=== PATIENT | female | born 1960 | race Caucasian/White ===

== ENCOUNTER 2016-04-10 22:12 | Emergency (ER) | payer SELFPAY ==
[~2016-04-10] VITALS: Ht 165.1 cm; Wt 91.4 kg
[~2016-04-10 22:12] MED LIST: ALBU0.086 INH; ALBU6.7H INH; MEDR4PAK3 PO; NEBUKIT4; ZITH250T PO
[2016-04-10 22:17] VITALS: BP 126/87; PULSE 92; RESP 18; TEMP 97.5; O2SAT 99
--- NOTE | 2016-04-10 23:46 | PD ---
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 She has similar pain that she had in 2012 when she had a plantar fasciitis. She also has pain on the distal right second metatarsal. This pain is gotten worse in the last 6 months. She comes to emergency department because she says she ran out of insurance. PFSH Past Medical History Bipolar Disorder: Yes Anxiety: Yes Depression: Yes Diabetes: No Diminished Hearing: No Gastrointestinal Disorders: Yes (CHRONIC DIARRHEA Started approx 2008 , does not keep her from working) Genitourinary: Yes (BLADDER SUSPENSION) Medical other: Yes (PLANTOR FASCITIS) Tetanus Vaccination: > 5 Years Influenza Vaccination: No ?: Not Menopausal: Yes : 4 Para: 2 Miscarriage: 1 : 1 Tubal Ligation: Yes Past Surgical History Cholecystectomy: Yes Genitourinary Surgery: Yes (BLADDER LIFT) Tonsillectomy: Yes Social History Alcohol Use: No Tobacco Use: Yes (1 ppd) Substance Use: No Allergies-Medications (Allergen,Severity, Reaction): Coded Allergies: No Known Allergies (Verified , 04/10/16) Reported Meds & Prescriptions Reported Meds & Active Scripts Active Ibuprofen 600 Mg Tab 600 Mg PO TID Review of Systems Except as stated in HPI: all other systems reviewed are Neg Physical Exam Narrative GENERAL: The patient is alert, oriented 3 and slight apparent distress with her bilateral foot pain. Her vital signs are normal. SKIN: Warm and dry. HEAD: Atraumatic. Normocephalic. EYES: Pupils equal and round. No scleral icterus. No injection or drainage. ENT: No nasal bleeding or discharge. Mucous membranes pink and moist. NECK: Trachea midline. No JVD. CARDIOVASCULAR: Regular rate and rhythm. No murmur appreciated. RESPIRATORY: No accessory muscle use. Clear to auscultation. Breath sounds equal bilaterally. GASTROINTESTINAL: Abdomen soft, non-tender, nondistended. Hepatic and splenic margins not palpable. MUSCULOSKELETAL: No obvious deformities. No clubbing. No cyanosis. No edema. There is tenderness over the right distal second metatarsal and tenderness over the heel of the left foot. No erythema or deformity is noted. NEUROLOGICAL: Awake and alert. No obvious cranial nerve deficits. Motor grossly within normal limits. Normal speech. PSYCHIATRIC: Appropriate mood and affect; insight and judgment normal. Data Data Last Documented VS Vital Signs Date Time Temp Pulse Resp B/P Pulse Ox O2 Delivery O2 Flow Rate FiO2 04/10/16 22:17 97.5 92 18 126/87 99 Room Air Orders Foot, Complete ([id number]) (04/10/16 23:38) Foot, Complete ([id number]) (04/10/16 23:38) Ketorolac Inj (Toradol Inj) (04/11/16 00:00) MDM Medical Decision Making Medical Screen Exam Complete: Yes Emergency Medical Condition: Yes Medical Record Reviewed: Yes Interpretation(s) X-rays show a tiny heel spur on the left foot, the right foot shows degenerative change around the mid foot, [id number] osteophyte on the Achilles tendon and moderate heel spur but no acute change. Differential Diagnosis Plantar fasciitis, metatarsalgia, stress fracture foot, other stress fracture on foot, osteoarthritis Narrative Course The left foot has plantar fasciitis in the right foot appears to have a metatarsalgia on the second metatarsal. Plan: The patient is given Motrin 600 mg 3 times daily and she is to follow-up with a quill skinner. She is given off 7 days for work. Diagnosis Primary Impression: Plantar fasciitis of left foot Additional Impression: Metatarsalgia of right foot Additional Instructions: Get the weight off the foot. We will write you a seven-day work excuse for this. Also, as we discussed, it is helpful to lose weight so that so much pressure is not applied on the foot. Take the Motrin regularly, 1 tablet 3 times a day and usually this calms it down. You will undoubtedly need to follow -up with a quill skinner for both of these conditions. Med/Other Pt SpecificInfo: Prescription(s) given Scripts Ibuprofen 600 Mg [id number] Mg PO TID #45 TAB Ref 0 Prov:Piyush Crow MD 04/10/16 Disposition: 01 DISCHARGE HOME Condition: Stable Piyush Crow MD Apr 10, 2016 23:46
[2016-04-10] MEDS ORDERED: IBUP-232 PO (23:49)
[2016-04-11] MEDS ORDERED: KETOROLAC TROMETHAMINE 60 MG/2 ML (IM) VIAL IM ONE
--- NOTE | 2016-04-11 00:31 | RADHPO ---
EXAM DATE/TIME: 04/11/2016 00:01 [facility] COMPARISON: No previous studies available for comparison. INDICATIONS : Left foot pain when walking, no recent trauma MEDICAL HISTORY : None. SURGICAL HISTORY : None. ENCOUNTER: Initial ACUITY: 1 day PAIN SCORE: 6/10 LOCATION: Left foot FINDINGS: Three view examination of the left foot demonstrates no soft tissue swelling, dislocation, or fractur e. The tarsal bones appear intact. The interphalangeal and metatarsophalangeal joints are intact. The calcaneus is intact. Bony mineralization is normal. Tiny heel spur noted. CONCLUSION: Intact left foot. No significant arthropathy seen. Tiny heel spur. Jose Paz MD on April 11, 2016 at 0:29 Board Certified Radiologist. This report was verified electronically.
--- NOTE | 2016-04-11 00:33 | RADHPO ---
EXAM DATE/TIME: 04/11/2016 00:05 [facility] COMPARISON: No previous studies available for comparison. INDICATIONS : Right foot pain when walking, no recent trauma MEDICAL HISTORY : Spurs SURGICAL HISTORY : None. ENCOUNTER: Initial ACUITY: 1 day PAIN SCORE: 7/10 LOCATION: Right foot FINDINGS: Bones of the right foot are intact. No subluxation. Very mild joint space narrowing seen of the navic ular/cuneiform and Lisfranc joints. There is a moderate heel spur and a small to moderate size enthes ophyte of distal Achilles. CONCLUSION: No acute process. Minimal mid foot degenerative changes, moderate heel spur and small to moderate dis vera Achilles enthesophyte. Jose Paz MD on April 11, 2016 at 0:30 Board Certified Radiologist. This report was verified electronically.
== END 2016-04-11 01:10 | disposition home or self-care (01) ==
LOC: PHEFT 22:12
DX: M72.2 Plantar fascial fibromatosis (principal); M77.41 Metatarsalgia, right foot; E66.9 Obesity, unspecified; F17.200 Nicotine dependence, unspecified, uncomplicated; Z86.59 Personal history of other mental and behavioral disorders; Z87.19 Personal history of other diseases of the digestive system; Z87.448 Personal history of other diseases of urinary system; Z87.39 Personal history of other diseases of the musculoskeletal system and connective tissue
CPT/HCPCS: 73630; 96372; 99283; J1885

== ENCOUNTER 2016-11-02 16:30 | Emergency (ER) | payer SELFPAY ==
[~2016-11-02] VITALS: Ht 165.1 cm; Wt 84.1 kg
[~2016-11-02 16:30] MED LIST changes: -ALBU0.086 INH; -ALBU6.7H INH; +IBUP-232 PO; -MEDR4PAK3 PO; -NEBUKIT4; -ZITH250T PO
[2016-11-02] MEDS ORDERED: IOHEXOL 350 MG/ML 10 ML VIAL (for RAD DIAG) IVCONTRAST ONE (16:31)
[2016-11-02] MEDS ORDERED: SODIUM CHLORIDE 0.9% FLUSH 10 ML FLUSH IVF PRN (16:45)
[2016-11-02] MEDS ORDERED: ASPIRIN 81 MG CHEW TAB PO ONE (16:45)
[2016-11-02 16:56] LABS: AUTOMATED NEUTROPHIL # 4.6 TH/MM3 (1.8-7.7); BASOPHIL % 0.5 % (0.0-2.0); EOSINOPHIL # 0.3 TH/MM3 (0-0.4); EOSINOPHIL % 3.5 % (0.0-4.0); HEMATOCRIT 46.2 % (35.0-46.0); HEMO FLAGS DIFF FINAL; LYMPH % 38.8 % (9.0-44.0); LYMPHOCYTE # 3.4 TH/MM3 (1.0-4.8); MEAN CELL VOLUME 86.9 FL (80.0-100.0); MEAN CORPUSCULAR HEMOGLOBIN 28.1 PG (27.0-34.0); MEAN CORPUSCULAR HGB CONC 32.3 % (32.0-36.0); MONO % 4.9 % (0.0-8.0); NEUT % 52.3 % (16.0-70.0); PLATELET COUNT 218 TH/MM3 (150-450); RED BLOOD COUNT 5.32 MIL/MM3 (4.00-5.30); RED CELL DISTRIBUTION WIDTH 12.9 % (11.6-17.2); WHITE BLOOD COUNT 8.7 TH/MM3 (4.0-11.0)
--- NOTE | 2016-11-02 17:00 | RADRPT ---
EXAM DATE/TIME: 11/02/2016 16:42 [facility] COMPARISON: CHEST PA & LAT, October 07, 2013, 1:07. INDICATIONS : Chest pain and short of breath. MEDICAL HISTORY : None. SURGICAL HISTORY : None. ENCOUNTER: Initial ACUITY: 1 day PAIN SCORE: 6/10 LOCATION: Bilateral chest FINDINGS: The lungs are clear without infiltrate, nodule, or mass. There is no appreciable pleural effusion fo r technique. Heart and mediastinum are unremarkable. CONCLUSION: No acute cardiopulmonary disease. Greta Wilson MD on November 02, 2016 at 16:58 Board Certified Radiologist. This report was verified electronically.
[2016-11-02 17:04] LABS: CHLORIDE 107 MEQ/L (98-107); POTASSIUM 3.9 MEQ/L (3.5-5.1); SODIUM (NA) 138 MEQ/L (136-145)
[2016-11-02 17:08] LABS: ANION GAP 8 MEQ/L (5-15); BICARBONATE 23.5 MEQ/L (21.0-32.0); BLOOD UREA NITROGEN 14 MG/DL (7-18); MAGNESIUM 1.8 MG/DL (1.5-2.5)
[2016-11-02] MEDS ORDERED: [UNRECOGNIZED DRUG - OTHER] (17:08)
[2016-11-02] MEDS ORDERED: LISI10TA3 PO (17:08)
[2016-11-02 17:09] VITALS: BP 95/56; PULSE 93; RESP 20; TEMP 98.2; O2SAT 97
[2016-11-02 17:09] LABS: APTT (PATIENT) 24.2 SEC (24.3-30.1); PROTHROMBIN TIME - PATIENT 10.5 SEC (9.8-11.6)
[2016-11-02 17:11] LABS: GLOMERULAR FILTRATION RATE 46 ML/MIN (>89)
[2016-11-02 17:14] VITALS: O2SAT 98
[2016-11-02 17:19] LABS: CREATINE KINASE 79 U/L (26-192)
[2016-11-02 17:20] VITALS: BP_SYST 136; BP_SYST 87; BP_DIAS 68; BP_DIAS 75; PULSE 82; RESP 20; O2SAT 98
[2016-11-02] MEDS ORDERED: SODIUM CHLOR 0.9% 1000 ML INJ 1,000 ML IV ONE (17:45)
[2016-11-02 17:49] VITALS: BP_SYST 68; BP_SYST 90; BP_DIAS 44; BP_DIAS 71; PULSE 70; RESP 20; O2SAT 98
--- NOTE | 2016-11-02 17:51 | PD ---
HPI . Neck, chest and shoulder pain Chief Complaint: Chest Pain Time Seen by Provider: 16:35 Travel History International Travel<30 days: No Contact w/Intl Traveler<30days: No Traveled to known affect area: No History of Present Illness HPI This patient presents with a chief complaint of acute right sided shoulder, chest and neck pain. This started shortly prior to presentation after she had. She states that the pain was initially severe but has progressively improved since the onset. She states that it was associated with diaphoresis. She states that the pain was initially exacerbated by movement but is no longer worse with movement. She states that it is currently an achy pain. She does not have any shortness of breath. The patient reports that she was recently started on an antihypertensive. She is on lisinopril [facility] Past Medical History Bipolar Disorder: Yes Anxiety: Yes Depression: Yes Diabetes: No Diminished Hearing: No Gastrointestinal Disorders: Yes (CHRONIC DIARRHEA Started approx 2008 , does not keep her from working) Genitourinary: Yes (BLADDER SUSPENSION) Hypertension: Yes Influenza Vaccination: No ?: Not Menopausal: Yes : 4 Para: 2 Miscarriage: 1 : 1 Tubal Ligation: Yes Past Surgical History Cholecystectomy: Yes Genitourinary Surgery: Yes (BLADDER LIFT) Tonsillectomy: Yes Social History Alcohol Use: No Tobacco Use: Yes (1 ppd) Substance Use: No Allergies-Medications (Allergen,Severity, Reaction): Coded Allergies: No Known Allergies (Verified , 04/10/16) Reported Meds & Prescriptions Reported Meds & Active Scripts Active Reported [diarrhea med] Lisinopril 10 Mg Tab 10 Mg PO DAILY Review of Systems Except as stated in HPI: all other systems reviewed are Neg General / Constitutional: No: Fever, Chills Cardiovascular: Positive: Chest Pain or Discomfort Respiratory: No: Shortness of Breath Gastrointestinal: Positive: Nausea, Vomiting, Diarrhea (her GI symptoms are chronic. She relates them to celiac disease.) Musculoskeletal: Positive: Myalgias Physical Exam Narrative Vital Signs Date Time Temp Pulse Resp B/P (MAP) Pulse Ox O2 Delivery O2 Flow Rate FiO2 11/02/16 17:20 82 20 136/75 (95) 98 87/68 (74) 11/02/16 17:14 98 11/02/16 17:09 98.2 93 20 95/56 (69) 97 GENERAL: Awake and alert and in no acute distress. SKIN: Warm and dry. HEAD: Atraumatic. Normocephalic. EYES: Pupils equal and round. Extraocular movements are intact. ENT: No nasal bleeding or discharge. Mucous membranes pink and moist. NECK: Trachea midline. Neck is supple. CARDIOVASCULAR: Regular rate and rhythm. Heart sounds are normal. RESPIRATORY: No accessory muscle use. Lungs are clear with full air movement throughout. GASTROINTESTINAL: Abdomen soft, non-tender, nondistended. MUSCULOSKELETAL: No obvious deformities. No edema. I am unable to elicit any tenderness to palpation in the right neck, shoulder or chest. NEUROLOGICAL: Awake and alert. No obvious cranial nerve deficits. Motor grossly within normal limits. Normal speech. PSYCHIATRIC: Appropriate mood and affect; insight and judgment normal. Data Data Last Documented VS Vital Signs Date Time Temp Pulse Resp B/P (MAP) Pulse Ox O2 Delivery O2 Flow Rate FiO2 11/02/16 17:49 70 20 68/44 (52) 98 90/71 (77) 11/02/16 17:09 98.2 Orders Orders Electrocardiogram (11/02/16 16:35) Basic Metabolic Panel (Bmp) (11/02/16 16:35) Ckmb (Isoenzyme) Profile (11/02/16 16:35) Complete Blood Count With Diff (11/02/16 16:35) Magnesium (Mg) (11/02/16 16:35) Prothrombin Time / Inr (Pt) (11/02/16 16:35) Act Partial Throm Time (Ptt) (11/02/16 16:35) Troponin I (11/02/16 16:35) Chest, Single Ap (11/02/16 16:35) Ecg Monitoring (11/02/16 16:35) Bilateral Bp Monitoring (11/02/16 16:35) Iv Access Insert/Monitor (11/02/16 16:35) Oximetry (11/02/16 16:35) Oxygen Administration (11/02/16 16:35) Aspirin Chew (Aspirin Chew) (11/02/16 16:45) Sodium Chloride 0.9% Flush (Ns Flush) (11/02/16 16:45) D-Dimer (11/02/16 17:10) Cta Thor Abd Aorta W Iv C W3d (11/02/16 ) Sodium Chlor 0.9% 1000 Ml Inj (Ns 1000 M (11/02/16 17:45) Iohexol 350 Inj (Omnipaque 350 Inj) (11/02/16 16:31) Labs Laboratory Tests Test 11/02/16 16:45 White Blood Count 8.7 TH/MM3 Red Blood Count 5.32 MIL/MM3 Hemoglobin 14.9 GM/DL Hematocrit 46.2 % Mean Corpuscular Volume 86.9 FL Mean Corpuscular Hemoglobin 28.1 PG Mean Corpuscular Hemoglobin Concent 32.3 % Red Cell Distribution Width 12.9 % Platelet Count 218 TH/MM3 Mean Platelet Volume 8.8 FL Neutrophils (%) (Auto) 52.3 % Lymphocytes (%) (Auto) 38.8 % Monocytes (%) (Auto) 4.9 % Eosinophils (%) (Auto) 3.5 % Basophils (%) (Auto) 0.5 % Neutrophils # (Auto) 4.6 TH/MM3 Lymphocytes # (Auto) 3.4 TH/MM3 Monocytes # (Auto) 0.4 TH/MM3 Eosinophils # (Auto) 0.3 TH/MM3 Basophils # (Auto) 0.0 TH/MM3 CBC Comment DIFF FINAL Differential Comment Prothrombin Time 10.5 SEC Prothromb Time International Ratio 1.0 RATIO Activated Partial Thromboplast Time 24.2 SEC D-Dimer Quantitative (PE/DVT) 0.45 MG/L FEU Blood Urea Nitrogen 14 MG/DL Creatinine 1.20 MG/DL Random Glucose 185 MG/DL Calcium Level 9.2 MG/DL Magnesium Level 1.8 MG/DL Sodium Level 138 MEQ/L Potassium Level 3.9 MEQ/L Chloride Level 107 MEQ/L Carbon Dioxide Level 23.5 MEQ/L Anion Gap 8 MEQ/L Estimat Glomerular Filtration Rate 46 ML/MIN Total Creatine Kinase 79 U/L Troponin I LESS THAN 0.02 NG/ML MDM Medical Decision Making Medical Screen Exam Complete: Yes Emergency Medical Condition: Yes Interpretation(s) EKG shows a normal sinus rhythm with no acute ischemic change. Differential Diagnosis Differential diagnosis of chest pain includes but is not limited to musculoskeletal pain, pulmonary embolism, acute coronary syndrome, pneumonia, pleurisy Narrative Course This patient presents with the acute onset of right-sided shoulder, neck and chest pain. She has a discrepancy in her blood pressures between his left and right arms. CT angiogram has been ordered. CBC & BMP Diagram 11/02/16 16:45 Calcium Level 9.2, Magnesium Level 1.8 Cardiac enzymes are negative. Last Impressions Chest X-Ray 11/02/16 1635 Signed Impressions: Service Date/Time: October 16:42 - CONCLUSION: No acute cardiopulmonary disease. Greta Wilson MD CT angiogram: CONCLUSION: 1. No aneurysm or dissection is present. There is moderate to severe atherosclerotic disease. 2. Mediastinal and right hilar lymphadenopathy of uncertain etiology. 3. There is a 2.4 cm left lobe liver lesion that is indeterminate. This was described on a prior examination from 2010 favoring a benign process. There is a right liver lesion measuring 16 mm with features suggestive of a hemangioma. 4. There is a 10 mm right kidney lesion that is incompletely characterized on this exam. Etiology of this patient's right shoulder, neck and chest pain has been undetermined. However, I do not find a concerning etiology for her pain. She' ll be discharged home with instructions to follow up with primary care provider. Diagnosis Primary Impression: Neck pain on right side Patient Instructions: Acute Neck Pain (ED), General Instructions, Narcotic given in the ED Med/Other Pt SpecificInfo: Prescription(s) given Scripts Cyclobenzaprine (Flexeril) 10 Mg Tab 10 MG PO TID for Muscle Spasm, #30 TAB 0 Refills Prov: Carolyn Ayala MD 11/02/16 Tramadol (Ultram) 50 Mg Tab 50 MG PO Q4H Y for PAIN, #12 TAB 0 Refills Prov: Carolyn Ayala MD 11/02/16 Disposition: 01 DISCHARGE HOME Condition: Stable Carolyn Ayala MD Nov 02, 2016 17:51
--- NOTE | 2016-11-02 18:52 | RADRPT ---
EXAM DATE/TIME: 11/02/2016 17:59 [facility] COMPARISON: No previous studies available for comparison. INDICATIONS : Right chest, neck, arm and upper back pain. Evaluate for aortic dissection. IV CONTRAST: 85 cc Omnipaque 350 (iohexol) IV RADIATION DOSE: 22.66 CTDIvol (mGy) MEDICAL HISTORY : Hypertension. SURGICAL HISTORY : Cholecystectomy. Tubal ligation. ENCOUNTER: Initial ACUITY: 1 day PAIN SCALE: 7/10 LOCATION: Right chest TECHNIQUE: Volumetric scanning was performed using a multi-row detector CT scanner. The data was post processed with a variety of visualization algorithms including full volume maximum intensity projection, multi -planar sliding thin slab reformation, curved planar reformation, and surface rendering techniques. Using automated exposure control and adjustment of the mA and/or kV according to patient size, radiat ion dose was kept as low as reasonably achievable to obtain optimal diagnostic quality images. DICOM format image data is available electronically for review and comparison. FINDINGS: LUNGS: There is no consolidation or pneumothorax. No concerning pulmonary nodule is visualized. No pleural fluid is present. MEDIASTINUM: There is an enlarged right axillary lymph node measuring 15 mm in short axis diameter and enlarged AP window lymph node measuring 10 mm in short axis diameter. ABDOMEN: There is a low-density lesion within the left lobe measuring 2.4 cm. Hounsfield measurements are appr oximately 22. In the right posterior liver there is a low-density lesion with peripheral nodular enha ncement measuring 16 mm. Patient is post cholecystectomy. There is a low-density lesion at the upper pole of the right kidney measuring 10 mm. Hounsfield measurements are 27. Adrenal glands, spleen, and pancreas are within normal limits. Stomach and bowel demonstrate no acute finding. PELVIS: Bladder and uterus demonstrate no abnormality. THORACIC AORTA: Aorta is non-aneurysmal. No dissection is present. There is moderate atherosclerotic disease. ABDOMINAL AORTA: Abdominal aorta demonstrates severe atherosclerotic disease particularly in the distal aspect. No ane urysm or dissection is present. Major branches are patent. PELVIC VESSELS: The internal iliac and external iliac vessels are patent without aneurysm or stenosis. CONCLUSION: 1. No aneurysm or dissection is present. There is moderate to severe atherosclerotic disease. 2. Mediastinal and right hilar lymphadenopathy of uncertain etiology. 3. There is a 2.4 cm left lobe liver lesion that is indeterminate. This was described on a prior exam ination from 2010 favoring a benign process. There is a right liver lesion measuring 16 mm with featu res suggestive of a hemangioma. 4. There is a 10 mm right kidney lesion that is incompletely characterized on this exam. Jose Lee MD on November 02, 2016 at 18:44 Board Certified Radiologist. This report was verified electronically.
[2016-11-02] MEDS ORDERED: CYCL1TAB29 PO (18:58)
[2016-11-02] MEDS ORDERED: ULTR50TA5 PO (18:58)
[2016-11-02 19:16] VITALS: BP 120/66
--- NOTE | 2016-11-03 11:56 | EKG ---
Date Performed: 11/02/2016 Time Performed: 16:36:11 PTAGE: 56 years EKG: Sinus rhythm NORMAL ECG Compared to prior tracing no significant change PREVIOUS TRACING : 02/18/2010 12.08 DOCTOR: [place] Rdz Interpretating Date/Time 11/03/2016 11:49:50
== END 2016-11-02 20:32 | disposition home or self-care (01) ==
LOC: PHED 16:30
DX: M54.2 Cervicalgia (principal); I10 Essential (primary) hypertension; R19.7 Diarrhea, unspecified; Z90.49 Acquired absence of other specified parts of digestive tract
CPT/HCPCS: 71010; 71275; 74174; 80048; 82550; 83735; 84484; 85025; 85379; 85610; 85730; 93005; 99285; J7030; Q9967

== ENCOUNTER 2017-05-14 22:29 | Emergency (ER) | payer SELFPAY ==
[~2017-05-14] VITALS: Ht 162.6 cm; Wt 84.6 kg
[~2017-05-14 22:29] MED LIST changes: +CYCL10TA PO; -IBUP-232 PO; +LISI10TA3 PO; +TRAM50 PO; +[UNRECOGNIZED DRUG - OTHER]
[2017-05-14 22:39] VITALS: BP 112/62; PULSE 89; RESP 18; TEMP 97.9; O2SAT 97
[2017-05-14] MEDS ORDERED: ALEV220T14 PO (22:59)
[2017-05-14] MEDS ORDERED: PENI500T PO (23:13)
--- NOTE | 2017-05-14 23:14 | PD ---
HPI Chief Complaint: Facial Pain or Swelling Time Seen by Provider: 23:01 Travel History International Travel<30 days: No Contact w/Intl Traveler<30days: No Traveled to known affect area: No History of Present Illness HPI Patient came in complaining of a 2 day old intermittent and its swelling of her right cheek. Patient states that she does not have great dental care that she did not feel any kind of dental pain. Patient started to notice that her right cheek with swell slightly and then improved. But today after finishing dinner she noticed that it became more prominent and it did not seem to be coming down. Denies any alleviating or aggravating factors. Patient denies any history of any fever, rash, cough, sore throat, runny nose, nausea, vomiting, diarrhea, headache, chest pain, back pain, abdominal pain. Denies any known drug allergy Past medical history shows history of bipolar, tubal ligation cholecystectomy, bladder suspension/bladder lift, tonsillectomy, hypertension. PFSH Past Medical History Bipolar Disorder: Yes Anxiety: Yes Depression: Yes Diabetes: No Diminished Hearing: No Gastrointestinal Disorders: Yes (CHRONIC DIARRHEA Started approx 2008 , does not keep her from working) Genitourinary: Yes (BLADDER SUSPENSION) Headaches: Yes Hypertension: Yes Pneumonia: Yes Tetanus Vaccination: > 5 Years Influenza Vaccination: No ?: Not Menopausal: Yes : 4 Para: 2 Miscarriage: 1 : 1 Tubal Ligation: Yes Past Surgical History Cholecystectomy: Yes Genitourinary Surgery: Yes (BLADDER LIFT) Tonsillectomy: Yes Social History Alcohol Use: No Tobacco Use: Yes (1 ppd) Substance Use: No Allergies-Medications (Allergen,Severity, Reaction): Coded Allergies: No Known Allergies (Verified Adverse Reaction, Unknown, 05/14/17) Reported Meds & Prescriptions Reported Meds & Active Scripts Active Flexeril (Cyclobenzaprine HCl) 10 Mg Tab 10 Mg PO TID Reported Aleve Arthritis (Naproxen Sodium) 220 Mg Tab 220 Mg PO BID Lisinopril 10 Mg Tab 10 Mg PO DAILY Review of Systems General / Constitutional: No: Fever Eyes: No: Visual changes HENT: Positive: Other (Right cheek swelling) Cardiovascular: No: Chest Pain or Discomfort Respiratory: No: Shortness of Breath Gastrointestinal: No: Abdominal Pain Genitourinary: No: Dysuria Musculoskeletal: No: Pain Skin: No Rash Neurologic: No: Weakness Psychiatric: No: Depression Endocrine: No: Polydipsia Hematologic/Lymphatic: No: Easy Bruising Physical Exam Narrative GENERAL: SKIN: Warm and dry. HEAD: Atraumatic. Normocephalic. EYES: Pupils equal and round. No scleral icterus. No injection or drainage. ENT: No nasal bleeding or discharge. Mucous membranes pink and moist. Right maxillary molar with solange-coronal abscess. Right cheek is consistent with edema NECK: Trachea midline. No JVD. CARDIOVASCULAR: Regular rate and rhythm. RESPIRATORY: No accessory muscle use. Clear to auscultation. Breath sounds equal bilaterally. GASTROINTESTINAL: Abdomen soft, non-tender, nondistended. Hepatic and splenic margins not palpable. MUSCULOSKELETAL: Extremities without clubbing, cyanosis, or edema. No obvious deformities. NEUROLOGICAL: Awake and alert. No obvious cranial nerve deficits. Motor grossly within normal limits. Five out of 5 muscle strength in the arms and legs. Normal speech. PSYCHIATRIC: Appropriate mood and affect; insight and judgment normal. Data Data Last Documented VS Vital Signs Date Time Temp Pulse Resp B/P (MAP) Pulse Ox O2 Delivery O2 Flow Rate FiO2 05/14/17 22:39 97.9 89 18 112/62 (79) 97 Orders Orders Clindamycin Inj (Cleocin Inj) (05/14/17 23:15) [facility] Medical Decision Making Medical Screen Exam Complete: Yes Emergency Medical Condition: Yes Medical Record Reviewed: Yes Differential Diagnosis Pericoronitis versus dental infection versus dental caries versus facial extension of odontogenic abscess Narrative Course Clinically the patient had a paracoronal abscess on the maxillary molar with extension towards the right cheek Diagnosis Primary Impression: Dental infection with facial extension Patient Instructions: Dental Abscess (ED), General Instructions Scripts Penicillin V Potassium (Penicillin V Potassium) 500 Mg Tab 500 MG PO Q8H for Infection for 10 Days, #30 TAB 0 Refills Prov: Tuan Burris MD 05/14/17 Disposition: 01 DISCHARGE HOME Condition: Stable Tuan Burris MD May 14, 2017 23:14
[2017-05-14] MEDS ORDERED: CLINDAMYCIN PHOS 600 MG/4 ML VIAL IM ONE (23:15)
[2017-05-14] MEDS ORDERED: CLINDAMYCIN PHOS 300 MG/2 ML VIAL IM ONE (23:15)
== END 2017-05-14 23:31 | disposition home or self-care (01) ==
LOC: PHED 22:29
DX: K04.7 Periapical abscess without sinus (principal); F31.9 Bipolar disorder, unspecified; F41.9 Anxiety disorder, unspecified; I10 Essential (primary) hypertension; F17.200 Nicotine dependence, unspecified, uncomplicated; Z79.899 Other long term (current) drug therapy
CPT/HCPCS: 96372